=== PATIENT | female | born 1990 | race Caucasian/White ===

== ENCOUNTER 2019-03-14 11:49 | Emergency (ER) | payer MEDICAID ==
[~2019-03-14] VITALS: Ht 154.9 cm; Wt 68.0 kg
[2019-03-14 12:29] VITALS: BP 109/56
--- NOTE | 2019-03-14 12:31 | NUR ---
HAD PT LOWER CHEST TO KNEES FOLLOWED BY NON REBREATHER BAG APPLIED WITHOUT 02---PT IN LAB CHAIR NEXT TO TRIAGE----AWAITING AVAILABLE ROOM FOR MD WAN
--- NOTE | 2019-03-14 13:24 | NUR ---
C/O SUDDEN ONSET OF SOB WITH CARPAL SPASM---PT SITTING UPRIGHT AT THIS TIME, FULL CLEAR SPEECH, APPEARANCE RELAXED STATED BY PT SAYING SHE IS NOT ANXIOUS AND NO CARPAL SPASM NOTED AT THIS TIME.---
--- NOTE | 2019-03-14 13:25 | NUR ---
PT TO CXR
--- NOTE | 2019-03-14 13:52 | NUR ---
EKG PERFORMED IN TRIAGE ROOM
[2019-03-14 14:40] VITALS: BP 103/52
== END 2019-03-14 14:38 | disposition home or self-care (01) ==
LOC: MED 11:49
DX: F41.1 Generalized anxiety disorder (principal)
CPT/HCPCS: 71045; 81025; 93005; 99283

== ENCOUNTER 2022-10-17 17:48 | Emergency (ER) | payer MEDICAID ==
[~2022-10-17] VITALS: Ht 157.5 cm; Wt 63.0 kg
[2022-10-17 18:03] VITALS: BP 113/59; PULSE 70; RESP 20; TEMP 97.3; O2SAT 98
[2022-10-17 19:38] LABS: BASOPHILS # (AUTO) 0.1 K/uL (0.00-0.22); BASOPHILS % (AUTO) 1.1 % (0.0-2.0); EOSINOPHILS # (AUTO) 0.3 K/uL (0-0.4); EOSINOPHILS % (AUTO) 3.2 % (0.0-4.0); HEMATOCRIT 41.9 % (36-48); HEMOGLOBIN 14.1 g/dL (12.0-16.0); LYMPHOCYTES # (AUTO) 3.5 K/uL (2.5-16.5); LYMPHOCYTES % (AUTO) 36.7 % (20.5-51.1); MEAN CORPUSCULAR HEMOGLOBIN 28 pg (27-31); MEAN CORPUSCULAR HGB CONC 34 g/dL (33-37); MEAN CORPUSCULAR VOLUME 83.8 fL (80-94); MONOCYTES # (AUTO) 0.5 K/uL (0.8-1.0); MONOCYTES % (AUTO) 5.1 % (1.7-9.3); NEUTROPHILS # (AUTO) 5.2 K/uL (1.8-7.7); NEUTROPHILS % (AUTO) 53.9 % (42.2-75.2); PLATELET COUNT (AUTO) 247 K/uL (140-450); RED CELL DISTRIBUTION WIDTH 15.2 % (11.6-13.7); WHITE BLOOD COUNT (AUTO) 9.7 K/uL (4.8-10.8)
[2022-10-17 20:46] LABS: ALBUMIN 3.7 g/dL (3.4-5.0); ANION GAP 10.6 (8-16); CALCIUM 8.7 mg/dL (8.5-10.1); CARBON DIOXIDE 26.9 mmol/L (21-32); CREATININE 0.7 mg/dL (0.6-1.3); POTASSIUM 3.5 mmol/L (3.5-5.1); TOTAL BILIRUBIN 0.8 mg/dL (0.0-1.0); TOTAL PROTEIN, SERUM 7.8 g/dL (6.4-8.2)
== END 2022-10-17 22:19 | disposition left against medical advice (07) ==
LOC: MED 17:48
DX: O26.851 Spotting complicating pregnancy, first trimester (principal); Z3A.01 Less than 8 weeks gestation of pregnancy
CPT/HCPCS: 36415; 76801; 80053; 81002; 84702; 85025; 86900; 86901; 99284